=== PATIENT | male | born 1985 | race Two or more races ===

== ENCOUNTER 2017-06-16 13:41 | Emergency (ER) | payer SELFPAY ==
[2017-06-16 13:53] VITALS: BP 129/83; PULSE 77; TEMP 99.2; BMI 28.7
--- NOTE | 2017-06-16 14:05 | PDOC ---
History of Present Illness - General Chief Complaint: Revisit,Wound Recheck Stated Complaint: EMPLOYEE, FOLLOW UP Time Seen by Provider: 06/16/17 13:59 History Source: Patient Exam Limitations: No Limitations - History of Present Illness Initial Comments: CHIEF COMPLAINT: 31 y/o male here for previous ER documentation. HISTORY OF PRESENT ILLNESS: THe patient states he was seen here in 2016 for a right knee injury and was prescribed pain medication. He now needs proof of what he was given for his job. He has no complaints today. Vital signs on arrival are within normal limits. REVIEW OF SYSTEMS: GENERAL/CONSTITUTIONAL: No fever/chills. No weakness. No weight change. MUSCULOSKELETAL: +right knee pain - chronic. No neck or back pain. SKIN: No rash or easy bruising. NEUROLOGIC: No headache, vertigo, loss of consciousness, or loss of sensation. PHYSICAL EXAM: VITAL_SIGNS: within normal limits GENERAL_APPEARANCE: alert, cooperative, no obvious discomfort. MENTAL_STATUS: speech clear, oriented X 3, responds appropriately to questions. NEURO: motor intact and sensory intact in injured extremity. SKIN: warm, dry, good color. Past History - Past Medical History Allergies/Adverse Reactions: Allergies Allergy/AdvReac Type Severity Reaction Status Date / Time Fish Containing Products Allergy Verified 06/16/17 13:48 Home Medications: Ambulatory Orders Diclofenac Sodium 50 mg PO ASDIR 06/16/17 Ibuprofen [Motrin -] 600 mg PO TID 06/16/17 COPD: No DVT: No Dementia: No Diabetes: No - Immunization History Immunization Up to Date: Yes - Suicide/Smoking/Psychosocial Hx Smoking History: Never smoked Have you smoked in the past 12 months: No Information on smoking cessation initiated: No Hx Alcohol Use: No Drug/Substance Use Hx: No Substance Use Type: None *Physical Exam - Vital Signs Last Vital Signs Temp Pulse Resp BP Pulse Ox 99.2 F 77 18 129/83 97 06/16/17 13:48 06/16/17 13:48 06/16/17 13:48 06/16/17 13:48 06/16/17 13:48 Medical Decision Making - Medical Decision Making A/P: 31 y/o male with no medical complaints here for paperwork from his 2016 visit stating what medication he was given. Patient given all paperwork regarding what medications he was given in the ER and upon discharge. *DC/Admit/Observation/Transfer Diagnosis at time of Disposition: Worried well Right knee pain Qualifiers: Chronicity: acute Qualified Code(s): M25.561 - Pain in right knee - Discharge Dispostion Disposition: HOME Condition at time of disposition: Good - Referrals - Patient Instructions Additional Instructions: Please return to the ER for any concerning symptoms - Post Discharge Activity
== END 2017-06-16 14:17 | disposition home or self-care (01) ==
LOC: JERFT 13:41
DX: Z02.79 Encounter for issue of other medical certificate (principal); Z71.1 Person with feared health complaint in whom no diagnosis is made
CPT/HCPCS: 99281-25

== ENCOUNTER 2017-06-28 09:22 | Day surgery (SDC) | payer BC, OTHER ==
[2017-06-27 14:33] VITALS: BMI 28.1
[~2017-06-28 09:22] MED LIST: ONDANSETRON 4 MG/2 ML VIAL IVPUSH PRN; oxyCODONE HCL 5 MG TABLET PO PRN
[2017-06-28] MEDS ORDERED: DEXAMETHASONE SOD PHOSPHATE/PF 10 MG/ML SDV ONE (09:24)
[2017-06-28] MEDS ORDERED: LACTATED RINGERS SOLUTION 1,000 ML IV SCH (09:30)
--- NOTE | 2017-06-28 12:20 | OP ---
Operative Note - Note: Operative Date: 06/28/17 Pre-Operative Diagnosis: right achilles tendon rupture Operation: right achilles tendon repair Implants: swivel lock x2 Post-Operative Diagnosis: Same as Pre-op Surgeon: Pj Wiggins [employer] Consultant: Diogense Mcneil Anesthesia: General, Fractional Estimated Blood Loss (mls): 20 Operative Report Dictated: Yes
[2017-06-28 13:27] VITALS: TEMP 97.7
[2017-06-28 14:39] VITALS: BP 116/72; PULSE 78
--- NOTE | 2017-06-28 15:29 | OP ---
DATE OF OPERATION: DATE OF DICTATION: 06/28/2017 PREOPERATIVE DIAGNOSIS: Right Achilles tendon rupture. POSTOPERATIVE DIAGNOSIS: Right Achilles tendon rupture. PROCEDURE: Right Achilles tendon repair. SURGEON: Pj Wiggins MD ELECTRICAL SYSTEMS DESIGNER: Diogenes Mcneil MD, whose skillful assistance was necessary for the safe and timely performance of this procedure. Dr. Mcneil was able to help provide limb positioning, assist in the retraction, as well as the suture passage for the Achilles tendon, and suture fixation and hardware insertion. ANESTHESIA: Regional with general. POSTOPERATIVE CONDITION: Stable. COMPLICATIONS: None. IMPLANT: Arthrex SwiveLock anchors x2. INDICATIONS: This is a pleasant, 31-year-old gentleman who had presented with Achilles tendon rupture after playing basketball. Treatment options, including nonoperative versus operative management were reviewed. Operative risks were reviewed in detail, including bleeding, infection, neurovascular injury, need for further surgery, postoperative pain and stiffness, re-rupture, permanent loss of strength and atrophy. We reviewed medical risks, such as heart attack, stroke, DVT, PE, and . We discussed the alternative of nonoperative care with an early repair protocol with the potential for decreased power and altered proprioception while playing sports. The patient voiced understanding, all of his questions were addressed, and he elected to proceed. PROCEDURE: The patient was brought to the operating room where general anesthesia was administered. He had previously been given a block in the preoperative holding area. He was then placed in the prone position, careful to pad all the bony prominences. The right lower extremity was then prepped and draped in the usual sterile fashion. A preoperative dose of antibiotics was given and the usual timeout procedure was performed. At this point, limb was exsanguinated and the tourniquet was inflated to 250 mmHg. The distal stump of the Achilles was identified and marked out on the skin. The proximal stump was identified, retracted approximately 5 to 6 cm, and marked out as well. Incision was planned out just proximal to the distal stump in line with the limb. This was carried down through skin to the subcutaneous tissue. Blunt spreading was used to expose the paratenon which was split in line with its fibers. A clamp was then slid up the paratenon and used to retrieve the distal end of the proximal stump. The PARS jig was now inserted around the Achilles tendon. Maintaining tension on the tendon with the clamp and utilizing the jig, multiple passes with sutures were made utilizing the jig. The sutures were then retrieved out through the incision and were now all contained within the paratenon. The locking sutures were then twisted and passed, securing the fixation. Aggressive tension was applied and no loosening of the sutures was seen. Two stab wounds were made over now the calcaneus. These were carried down full thickness to the bone. Blunt spreading was used to create a track and the drill sleeve was inserted. Two drill holes were made. Both were tapped. The banana lasso was now used to pass the sutures through the distal stump of the Achilles tendon and coming out the stab wounds. Both sets of sutures were loaded onto suture anchors. The anchors were then tensioned and then inserted, securing the two ends of the Achilles in close approximation. The excess sutures were now cut. The paratenon was repaired using 3-0 Vicryl. The subcutaneous tissue was repaired using 3-0 Vicryl. The skin was closed using 4-0 nylon. Sterile dressings were placed. The patient was placed into a well-padded, short-leg cast. The tourniquet was let down after 48 minutes. The patient was transferred to the recovery room in stable condition. Antonio PEREZ/[id number]
== END 2017-06-28 14:42 | disposition home or self-care (01) ==
LOC: FASU 09:22
PROVIDERS: ATTEND Orthopaedic Surgery Sports Medicine
PROC: 0LQN0ZZ Repair Right Lower Leg Tendon, Open Approach (ICD-10-PCS; principal; 2017-06-28 11:07)
DX: S86.011A Strain of right Achilles tendon, initial encounter (principal); X58.XXXA Exposure to other specified factors, initial encounter; Y93.9 Activity, unspecified; Y92.9 Unspecified place or not applicable
CPT/HCPCS: 94760